=== PATIENT | male | born 1970 | race Two or more races ===

== ENCOUNTER 2021-06-29 18:49 | Emergency (ER) | payer OTHER ==
[~2021-06-29] VITALS: Ht 165.1 cm; Wt 74.8 kg
[2021-06-30] MEDS ORDERED: cefTRIAXone SOD 1,000 MG VL IM ONE (00:30)
[2021-06-30 01:03] VITALS: BP 137/85
== END 2021-06-30 01:09 | disposition home or self-care (01) ==
LOC: ER 18:49
DX: L03.031 Cellulitis of right toe (principal); E11.9 Type 2 diabetes mellitus without complications; E78.5 Hyperlipidemia, unspecified
CPT/HCPCS: 73660; 96372; 99283; J0696